=== PATIENT | male | born 1960 | race Caucasian/White ===

== ENCOUNTER → 2019-03-04 | Outpatient (CLI) | payer OTHER | LOC: GMA MATASK 15:41 | PROVIDERS: ATTEND Family Medicine | DX: E11.21 Type 2 diabetes mellitus with diabetic nephropathy (principal) ==

== ENCOUNTER → 2019-12-09 | Outpatient (CLI) | payer OTHER ==
--- NOTE | 2019-12-09 11:43 | CT ---
EXAM DESCRIPTION: Abdomen w/o Contrast: Computed Tomography. CLINICAL HISTORY: ABD PAIN COMPARISON: None. TECHNIQUE: Spiral-axial scans at 2.5 x 2.5 mm intervals through the abdomen. Coronal and sagittal 2.0 mm reconstructions. No IV or oral contrast. Total DLP: 1104 mGy - m2. This exam was performed according to our departmental dose-optimization program which includes automated exposure control, adjustment of the mA and/or kV according to patient size and/or use of iterative reconstruction technique; to reduce radiation dose to as low as reasonably achievable (ALARA). FINDINGS: Lung bases and pleura: Negative. Upper Abdominal organs: Right lobe of the liver craniocaudal dimension 19 cm. Heterogeneously low density. No focal lesions. Smooth capsule with no ascites. Small low-density regions in the spleen, too small to evaluate by CT scan. 1.7 x 1.3 cm mass in the right adrenal gland with heterogeneous density of +15. Left adrenal gland is negative. Stomach unremarkable. Pancreas/Gallbladder/Ducts: Gallbladder visualized. Minimally prominent duct. Pancreas negative. Kidneys: Homogeneous density except for 1 cm cystic area, density +12, in the anterior mid right kidney. No echogenic stones or hydronephrosis or perinephric fluid. Normal caliber ureters. Mesentery: No stranding or fascial thickening; no free air or free fluid. Aorta: Atherosclerotic calcification including the major branch vessels but outer wall showing no aneurysm. Small Bowel: Normal caliber slightly more prominent proximally with minimal fluid proximally. Terminal Ileum/Cecum: Unremarkable size. Appendix not seen. No inflammatory changes. Colon: Minimal diffuse fecal burden. Diverticula noted in the transverse colon and increasing distally to the rectosigmoid. Minimal redundancy of the sigmoid colon. No complications. Spine: 4 lumbar type vertebra, assuming that the most inferior vertebra bearing ribs is T12. L5 is transitional and partially sacralized with rudimentary L5-S1 disc and sacral like transverse processes mostly fused to the bilateral S1 sacral ala. Not fused to the iliac bones. Early spondylosis at L4-L5 and L3-L4. Bilateral L4-L5 facet joint hypertrophic arthropathy. Hypertrophy of the bilateral superior lateral acetabula with joint space narrowing and minimal over coverage of the bilateral femoral heads. Cystic changes in the superior lateral right femoral neck. Pelvic organs: Urinary bladder well-distended with minimal wall thickening but no radiodense stones. Enlarged prostate gland impressing on the base of the urinary bladder and the seminal vesicles. No free fluid. Abdominal Wall/Back Soft Tissues: Unusual appearance of tissue in the midline abdomen at the level of the umbilicus with radiodense material which may represent sutures. No small bowel incarceration. IMPRESSION: 1. Hepatomegaly with steatosis. Smooth capsule and no ascites. 2. Heterogeneous fluid density mass 1.7 cm, in the right adrenal gland. Consider adrenal gland CT IV contrast washout protocol to document cyst, adenoma, or mass. 3. Diverticulosis of the transverse descending and sigmoid colon with no complications. Cyst mid right kidney. Enlarged prostate gland impressing on the base of the urinary bladder with minimal bladder wall thickening. 4. 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 Hypertrophic posterior facet changes bilaterally at L4-L5. Transitional vertebrae can be a cause of abnormal spine biomechanics and a source of back pain. Consider follow-up MRI lumbar spine if radiculopathy is present. 5. Unusual appearance of soft tissue in the abdominal wall at the umbilical region, which may represent prior surgical repair. No recurrent hernia or incarceration of bowel. Correlate with clinical findings. Electronically signed by: Sorin Rodriguez MD 12/09/2019 11:42 AM CDT
== END ==
LOC: CT 07:32
PROVIDERS: ATTEND Family Medicine
DX: R19.07 Generalized intra-abdominal and pelvic swelling, mass and lump (principal); K76.0 Fatty (change of) liver, not elsewhere classified; E27.9 Disorder of adrenal gland, unspecified; K57.30 Diverticulosis of large intestine without perforation or abscess without bleeding; N28.1 Cyst of kidney, acquired; N40.0 Benign prostatic hyperplasia without lower urinary tract symptoms; Q76.49 Other congenital malformations of spine, not associated with scoliosis; M46.96 Unspecified inflammatory spondylopathy, lumbar region

== ENCOUNTER → 2019-12-11 | Outpatient (CLI) | payer OTHER ==
--- NOTE | 2019-12-11 11:20 | CT ---
EXAM DESCRIPTION: Abdomen w/Contrast CLINICAL HISTORY: GENERALIZED INTRA-ABDOMINAL AND PELVIC SWELLING- MASS AND LUMP COMPARISON: December 09, 2019 TECHNIQUE: CT of the abdomen only was performed with IV contrast including portal venous phase and 15 minute delayed postcontrast images. This exam was performed according to our departmental dose-optimization program, which includes automated exposure control, adjustment of the mA and/or kV according to patient size and/or use of iterative reconstruction technique. FINDINGS: Again seen is a 1.8 cm right adrenal nodule, enhancement and washout characteristics consistent with a benign adenoma. No adenopathy or ascites. The spleen, pancreas, left adrenal and kidneys are unremarkable except for small right renal cyst. Partially visualized colonic diverticulosis without diverticulitis. Visualized portions of the small bowel are unremarkable. Postoperative changes in the midline anterior abdominal wall related to previous umbilical hernia repair, soft tissue density material the same location probably represent scarring from prior surgery. Tiny nodular soft tissue density lesion in the omentum anterior to the left hepatic lobe, nonspecific. No additional omental or mesenteric lesion. IMPRESSION: 1.8 cm right adrenal nodule requiring no further follow-up imaging. Partially visualized colonic diverticulosis without diverticulitis. Small nodular soft tissue density omental lesion, nonspecific but likely related to remote infection or inflammation. Electronically signed by: Wm Bynum MD 12/11/2019 11:18 AM CDT
== END ==
LOC: CT 08:45
PROVIDERS: ATTEND Family Medicine
DX: K57.30 Diverticulosis of large intestine without perforation or abscess without bleeding (principal); E27.8 Other specified disorders of adrenal gland; R22.2 Localized swelling, mass and lump, trunk